=== PATIENT | male | born 1940 | race Caucasian/White ===

== ENCOUNTER 2024-03-16 14:34 | Inpatient (IN) | payer OTHER, BC ==
[2024-03-16] MEDS: SODIUM CHLORIDE 0.9% 500 ML INFUS.BAG IV ONE ×2 (15:30→18:45)
[2024-03-16 16:51] LABS: BASO % 0.2 % (0-2.0); HEMATOCRIT 38.8 % (35.4-49); HEMOGLOBIN 12.4 GM/dL (11.7-16.9); LYMPH % 5.3 % (8-40); MCH 30.4 pg (25.7-33.7); MEAN CELL VOLUME 95.1 fl (80-96); MEAN PLT VOLUME 7.1 fl (7.5-11.1); MONO % 7.4 % (3.8-10.2); NEUT % 87.1 % (42.8-82.8); PLATELET COUNT 393 10^3/uL (134-434); RBC 4.08 M/mm3 (4.00-5.60); RDW 14.4 % (11.9-15.9); WHITE BLOOD COUNT 28.9 K/mm3 (4.0-10.0)
[2024-03-16 17:44] LABS: ANISOCYTOSIS 0; MACROCYTOSIS 0; TOXIC GRANULATION 3+
[2024-03-16] MEDS ORDERED: RAPID SEQUENCE INTUBATION KIT NR ONE (18:19)
[2024-03-16] MEDS: ETOMIDATE 40 MG/20 ML VIAL IVPUSH ONE (18:33)
[2024-03-16] MEDS ORDERED: PROPOFOL 1,000,000 MCG/100 ML VIAL ONE (18:35)
[2024-03-16] MEDS: PROPOFOL 1,000,000 MCG/100 ML VIAL IVPB SCH (18:45)
[2024-03-16 18:46] LABS: VENOUS BASE EXCESS -0.9 mmol/L (-2-2); VENOUS O2 SATURATION 39.5 % (70-80)
[2024-03-16 18:48] LABS: VENOUS PCO2 83.7 mmHg (38-52); VENOUS PH 7.178 (7.310-7.410)
[2024-03-16] MEDS: PIPERACILLIN/TAZOB 3.375 GM 3.375 GM in DEXTROSE 5%-WATER - 50 ML IVPB ONE (18:49)
[2024-03-16] MEDS ORDERED: PIPERACILLIN/TAZOB 3.375 GM 3.375 GM/50 ML BAG IVPB ONE (18:49)
[2024-03-16] MEDS: POLYMYXIN B SULFATE/TMP 10 ML OPHTHALMIC SOLUTION OD SCH (18:50)
[2024-03-16] MEDS ORDERED: ROCURONIUM BROMIDE 50 MG/5 ML SYRINGE ONE (18:54)
[2024-03-16 18:56] LABS: INR 1.13 (0.83-1.09)
[2024-03-16 18:59] LABS: ACTIVATED PTT 28.9 SECONDS (25.2-36.5)
[2024-03-16 19:10] LABS: POTASSIUM 4.1 mmol/L (3.5-5.1)
[2024-03-16 19:12] LABS: CALCIUM 9.5 mg/dL (8.5-10.1)
[2024-03-16 19:13] LABS: ALBUMIN 1.9 g/dl (3.4-5.0); BLOOD UREA NITROGEN 54.7 mg/dL (7-18); MAGNESIUM 2.4 mg/dL (1.8-2.4)
[2024-03-16 19:16] LABS: CREATININE 1.5 mg/dL (0.55-1.3)
[2024-03-16 19:18] LABS: BILIRUBIN,TOTAL 2.8 mg/dL (0.2-1); PHOSPHOROUS 4.8 mg/dL (2.5-4.9); TOT PROT 6.6 g/dl (6.4-8.2)
[2024-03-16 19:21] LABS: N-TERMINAL BNP 1660.2 pg/ml (5-450)
[2024-03-16] MEDS ORDERED: VANCOMYCIN 1 GRAM (PRE-DOCKED) 1,000 MG/250 ML BAG IVPB ONE (19:25)
[2024-03-16] MEDS: VANCOMYCIN 1,000 MG in DEXTROSE 5%-WATER - 250 ML IVPB ONE (19:35)
[2024-03-16 19:57] LABS: EPI CELLS 22 /uL (0-25.1); HYALINE CASTS 5 /uL (0-3.1); URINE APPEARANCE CLEAR; URINE BACTERIA 5 /uL (0-1359); URINE BILIRUBIN 2+ (NEGATIVE); URINE COLOR DK YELLOW; URINE GLUCOSE (UA) NEGATIVE (NEGATIVE); URINE KETONE TRACE (NEGATIVE); URINE LEUK ESTERASE NEGATIVE (NEGATIVE); URINE NITRITE NEGATIVE (NEGATIVE); URINE PROTEIN 1+ (NEGATIVE); URINE RBC 91 /uL (0-23.9); URINE UROBILINOGEN >=8.0 E.U./dl mg/dL (0.2-1.0); URINE WBC 29 /uL (0-25.8)
[2024-03-16 22:10] LABS: ARTERIAL BLD GAS O2 SATURATION 96.1 % (95-98); ARTERIAL BLOOD GAS BASE EXCESS 1.2 mmol/L (-2-2); ARTERIAL BLOOD GAS pH 7.262 (7.350-7.450)
[2024-03-16 22:11] LABS: VENT RATE 14
[2024-03-16 22:13] LABS: VENT MODE V-A/C
[2024-03-16] MEDS: CHLORHEXIDINE GLUCONATE 4% CLEANSER FOR DECOLONIZATION TP SCH (23:25)
[2024-03-16] MEDS: HEPARIN NA (PORCINE) 5,000 UNITS/ML 1ML VIAL SQ SCH (23:25)
[2024-03-16] MEDS: MUPIROCIN 2% TOPICAL OINTMENT FOR DECOLONIZATION NS SCH (23:25)
[2024-03-16] MEDS ORDERED: FUROSEMIDE 40 MG/4 ML INJECTABLE VIAL IVPUSH ONE (23:26)
[2024-03-17] MEDS: LACTATED RINGERS SOLUTION 1,000 ML/1,000 ML INFUS.BAG IV SCH (00:12)
[2024-03-17] MEDS: PIPERACILLIN/TAZOB 3.375 GM 3.375 GM in DEXTROSE 5%-WATER - 50 ML IVPB SCH (01:08)
[2024-03-17] MEDS ORDERED: PIPERACILLIN/TAZOB 3.375 GM 3.375 GM in DEXTROSE 5%-WATER - 50 ML IVPB SCH (02:00)
[2024-03-17 06:26] LABS: ARTERIAL BLD GAS O2 SATURATION 97.2 % (95-98); ARTERIAL BLOOD GAS BASE EXCESS 6.3 mmol/L (-2-2); ARTERIAL BLOOD GAS PO2 87.6 mmHg (80-100)
[2024-03-17 06:29] LABS: VENT MODE V-AC; VENT RATE 18
[2024-03-17 07:25] LABS: HEMATOCRIT 37.1 % (35.4-49); MCH 30.8 pg (25.7-33.7); MCHC 32.4 g/dl (32.0-35.9); MEAN CELL VOLUME 94.9 fl (80-96); MEAN PLT VOLUME 7.4 fl (7.5-11.1); PLATELET COUNT 411 10^3/uL (134-434); RBC 3.91 M/mm3 (4.00-5.60); RDW 14.5 % (11.9-15.9); WHITE BLOOD COUNT 25.5 K/mm3 (4.0-10.0)
[2024-03-17 07:41] LABS: POTASSIUM 3.6 mmol/L (3.5-5.1)
[2024-03-17 07:44] LABS: ALBUMIN 1.6 g/dl (3.4-5.0); CALCIUM 9.5 mg/dL (8.5-10.1)
[2024-03-17 07:45] LABS: BLOOD UREA NITROGEN 50.1 mg/dL (7-18); MAGNESIUM 2.2 mg/dL (1.8-2.4)
[2024-03-17 07:48] LABS: CREATININE 1.3 mg/dL (0.55-1.3); PHOSPHOROUS 2.6 mg/dL (2.5-4.9)
[2024-03-17 07:49] LABS: BILIRUBIN,TOTAL 1.9 mg/dL (0.2-1); TOT PROT 5.5 g/dl (6.4-8.2)
[2024-03-17] MEDS: FAMOTIDINE 20 MG/50 ML IVPB 20 MG/50 ML MG IVPB SCH (09:20)
[2024-03-17 09:29] LABS: ANISOCYTOSIS 0; MACROCYTOSIS 0
[2024-03-17] MEDS ORDERED: ALBUTEROL SO4 2.5/IPRATROPIUM 0.5 INH SOL 3 ML VIAL.NEB. NEB PRN (11:01)
[2024-03-17] MEDS: methylPREDNISolone NA SUCC 40 MG/1 ML VIAL IVPUSH SCH (11:12)
[2024-03-17] MEDS: MAGNESIUM 2GM/50ML STERILE WATER IVPB IVPB ONE (11:12)
[2024-03-17] MEDS: SODIUM CHLORIDE 1,000 ML IV SCH (13:29)
[2024-03-18 07:04] LABS: HEMOGLOBIN 11.1 GM/dL (11.7-16.9); MCH 30.6 pg (25.7-33.7); MCHC 31.8 g/dl (32.0-35.9); MEAN CELL VOLUME 96.3 fl (80-96); MEAN PLT VOLUME 8.1 fl (7.5-11.1); PLATELET COUNT 323 10^3/uL (134-434); RBC 3.64 M/mm3 (4.00-5.60); RDW 14.3 % (11.9-15.9); WHITE BLOOD COUNT 25.7 K/mm3 (4.0-10.0)
[2024-03-18 07:16] LABS: POTASSIUM 4.4 mmol/L (3.5-5.1)
[2024-03-18 07:25] LABS: ALBUMIN 1.5 g/dl (3.4-5.0); BLOOD UREA NITROGEN 59.5 mg/dL (7-18); CALCIUM 9.4 mg/dL (8.5-10.1); MAGNESIUM 2.9 mg/dL (1.8-2.4)
[2024-03-18 07:28] LABS: CREATININE 1.5 mg/dL (0.55-1.3); PHOSPHOROUS 5.4 mg/dL (2.5-4.9)
[2024-03-18 07:30] LABS: BILIRUBIN,TOTAL 1.5 mg/dL (0.2-1); TOT PROT 5.6 g/dl (6.4-8.2)
[2024-03-18] MEDS ORDERED: PROPOFOL 1,000,000 MCG/100 ML VIAL ONE (09:54)
[2024-03-18] MEDS: PIPERACILLIN/TAZOB 4.5 GM 4.5 GM in DEXTROSE 5%-WATER 100 ML IVPB SCH (11:25)
[2024-03-18] MEDS: VANCOMYCIN/WATER 1250 MG 1,250 MG/250 ML BAG IVPB SCH (16:31)
[2024-03-18] MEDS: DEXTROSE 5%-0.45% SALINE 1,000 ML IV SCH (16:32)
[2024-03-19 08:41] LABS: HEMATOCRIT 37.3 % (35.4-49); HEMOGLOBIN 11.6 GM/dL (11.7-16.9); MCH 30.2 pg (25.7-33.7); MEAN CELL VOLUME 97.4 fl (80-96); MEAN PLT VOLUME 7.8 fl (7.5-11.1); PLATELET COUNT 376 10^3/uL (134-434); RBC 3.83 M/mm3 (4.00-5.60); RDW 14.9 % (11.9-15.9)
[2024-03-19 08:51] LABS: POTASSIUM 4.1 mmol/L (3.5-5.1)
[2024-03-19 08:55] LABS: BLOOD UREA NITROGEN 63.9 mg/dL (7-18)
[2024-03-19 08:56] LABS: ALBUMIN 1.7 g/dl (3.4-5.0); MAGNESIUM 2.5 mg/dL (1.8-2.4)
[2024-03-19 08:58] LABS: WHITE BLOOD COUNT 30.1 K/mm3 (4.0-10.0)
[2024-03-19 08:59] LABS: CREATININE 1.8 mg/dL (0.55-1.3); PHOSPHOROUS 4.9 mg/dL (2.5-4.9)
[2024-03-19 09:00] LABS: BILIRUBIN,TOTAL 1.4 mg/dL (0.2-1); TOT PROT 6.1 g/dl (6.4-8.2)
[2024-03-19] MEDS ORDERED: ALBUTEROL SO4 2.5/IPRATROPIUM 0.5 INH SOL 3 ML VIAL.NEB. NEB SCH (14:00)
[2024-03-19] MEDS: ALBUTEROL SO4 2.5/IPRATROPIUM 0.5 INH SOL 3 ML VIAL.NEB. NEB SCH (14:15)
[2024-03-19] MEDS: CEFAZOLIN 1 GM in DEXTROSE 5%-WATER - 50 ML IVPB SCH (17:40)
[2024-03-20] MEDS: DEXTROSE 5%-0.45% SALINE 1,000 ML IV SCH (06:37)
[2024-03-20] MEDS: PNEUMOC 20-VAL CONJ-DIP CRM/PF 0.5 ML SYRINGE IM ONE (06:41)
[2024-03-20] MEDS: HEPARIN NA (PORCINE) 5,000 UNITS/ML 1ML VIAL SQ SCH (06:41)
[2024-03-20] MEDS: POLYMYXIN B SULFATE/TMP 10 ML OPHTHALMIC SOLUTION OD SCH (06:45)
[2024-03-20] MEDS: ALBUTEROL SO4 2.5/IPRATROPIUM 0.5 INH SOL 3 ML VIAL.NEB. NEB SCH (07:45)
[2024-03-20] MEDS ORDERED: MUPIROCIN 2% TOPICAL OINTMENT FOR DECOLONIZATION NS SCH (10:00)
[2024-03-20] MEDS ORDERED: methylPREDNISolone NA SUCC 40 MG/1 ML VIAL IVPUSH SCH (10:00)
[2024-03-20] MEDS: FAMOTIDINE 20 MG/50 ML IVPB 20 MG/50 ML MG IVPB SCH (10:06)
[2024-03-20] MEDS: methylPREDNISolone NA SUCC 40 MG/1 ML VIAL IVPUSH SCH (10:10)
[2024-03-20 10:22] LABS: HEMATOCRIT 36.2 % (35.4-49); HEMOGLOBIN 11.8 GM/dL (11.7-16.9); MCHC 32.7 g/dl (32.0-35.9); MEAN PLT VOLUME 7.9 fl (7.5-11.1); PLATELET COUNT 359 10^3/uL (134-434); RBC 3.81 M/mm3 (4.00-5.60); RDW 14.4 % (11.9-15.9); WHITE BLOOD COUNT 20.6 K/mm3 (4.0-10.0)
[2024-03-20 10:52] LABS: POTASSIUM 4.2 mmol/L (3.5-5.1)
[2024-03-20 11:01] LABS: ALBUMIN 1.8 g/dl (3.4-5.0)
[2024-03-20 11:04] LABS: CREATININE 1.4 mg/dL (0.55-1.3); PHOSPHOROUS 2.8 mg/dL (2.5-4.9)
[2024-03-20 11:05] LABS: TOT PROT 6.1 g/dl (6.4-8.2)
[2024-03-20 11:16] LABS: BLOOD UREA NITROGEN 53.9 mg/dL (7-18)
[2024-03-20] MEDS: FUROSEMIDE 40 MG TABLET (FP) PO SCH (12:46)
[2024-03-20] MEDS: POLYETHYLENE GLYCOL (HEALTHYLAX) 3350 17 GM PACKET PO SCH (12:46)
[2024-03-20 16:12] VITALS: BMI 27.0
[2024-03-20] MEDS ORDERED: CHLORHEXIDINE GLUCONATE 4% CLEANSER FOR DECOLONIZATION TP SCH (22:00)
[2024-03-20] MEDS: SENNOSIDES 8.8 MG/5 ML SYRUP PO SCH (22:13)
[2024-03-21 09:02] VITALS: RESP 18
[2024-03-21 10:11] LABS: HEMATOCRIT 35.6 % (35.4-49); HEMOGLOBIN 11.3 GM/dL (11.7-16.9); MCH 30.5 pg (25.7-33.7); MCHC 31.8 g/dl (32.0-35.9); MEAN CELL VOLUME 95.9 fl (80-96); MEAN PLT VOLUME 8.1 fl (7.5-11.1); PLATELET COUNT 314 10^3/uL (134-434); RBC 3.72 M/mm3 (4.00-5.60); RDW 14.3 % (11.9-15.9); WHITE BLOOD COUNT 18.5 K/mm3 (4.0-10.0)
[2024-03-21 10:36] LABS: POTASSIUM 4.1 mmol/L (3.5-5.1)
[2024-03-21 10:38] LABS: ALBUMIN 1.8 g/dl (3.4-5.0); BLOOD UREA NITROGEN 42.7 mg/dL (7-18); CALCIUM 8.9 mg/dL (8.5-10.1)
[2024-03-21 10:42] LABS: CREATININE 1.2 mg/dL (0.55-1.3)
[2024-03-21 10:43] LABS: BILIRUBIN,TOTAL 0.9 mg/dL (0.2-1); TOT PROT 5.7 g/dl (6.4-8.2)
[2024-03-21 12:01] LABS: ANISOCYTOSIS 0; MACROCYTOSIS 0
[2024-03-21] MEDS: BISACODYL 10 MG SUPP.RECT PR ONE (12:14)
[2024-03-22 20:29] VITALS: BP 152/64; PULSE 78; TEMP 97.9
== END 2024-03-23 03:15 | DRG 208 ==
LOC: JER 14:34 → JICU 19:25 → J6S 03-20 01:06 → UNDODISIN 03-22 15:08 → J6S 03-22 16:54
PROVIDERS: ADMIT Internal Medicine Pulmonary Disease; ATTEND Internal Medicine
PROC: 5A1945Z Respiratory Ventilation, 24-96 Consecutive Hours (ICD-10-PCS; principal; 2024-03-16)
PROC: 0BH17EZ Insertion of Endotracheal Airway into Trachea, Via Natural or Artificial Opening (ICD-10-PCS; 2024-03-16)
DX: J15.211 Pneumonia due to Methicillin susceptible Staphylococcus aureus (principal); G93.41 Metabolic encephalopathy; J96.01 Acute respiratory failure with hypoxia; J96.21 Acute and chronic respiratory failure with hypoxia; J96.22 Acute and chronic respiratory failure with hypercapnia; N17.9 Acute kidney failure, unspecified; E87.20 Acidosis, unspecified; N39.0 Urinary tract infection, site not specified; M62.82 Rhabdomyolysis; K59.00 Constipation, unspecified
CPT/HCPCS: 0241U-QW; 36415; 36600; 70450-TC; 71045-TC-FY; 80053; 81003; 82550; 82553; 82803; 82962; 83605; 83735; 83880; 84100; 84484; 85025; 85027; 85384; 85610; 85730; 86704; 86803; 86850; 86900; 86901; 87040; 87070; 87077; 87086; 87186; 87205; 87340; 87517; 90677; 93005; 93010; 94002; 94640; 97116-GP; 97161-GP; 99285-25; G0009; J1644